=== PATIENT | female | born 2000 | race Hispanic/Latino ===

== ENCOUNTER 2024-06-30 22:13 | Emergency (ER) | payer SELFPAY ==
[~2024-06-30] VITALS: Ht 152.4 cm; Wt 57.6 kg
[2024-06-30 22:13] VITALS: PULSE 62; RESP 18; TEMP 97.9
[2024-06-30 23:08] VITALS: BP 129/61; PULSE 62; RESP 18; TEMP 97.9; O2SAT 100
== END 2024-06-30 23:11 | disposition home or self-care (01) ==
LOC: FSED 22:16
DX: R07.81 Pleurodynia (principal)
CPT/HCPCS: 71045; 80053; 82553; 84484; 85025; 85379; 93005; 99283